=== PATIENT | male | born 1945 ===

== ENCOUNTER 2017-01-15 18:08 | Inpatient (IN) | payer MEDICARE, OTHER ==
[2017-01-15 18:08] VITALS: BMI 25.3
[2017-01-15 19:23] LABS: BASO # 0.1 K/uL (0.0-0.2); EOS # 0.1 K/uL (0.0-0.7); EOS % 0.9 % (0.0-4.0); HEMATOCRIT 40.5 % (35.0-51.0); LYMPH # 1.2 K/uL (1.0-4.3); LYMPH % 17.1 % (20.0-40.0); MEAN CORPUSCULAR HEMOGLOBIN 29.5 pg (27.0-31.0); MEAN CORPUSCULAR HGB CONC 33.1 g/dL (33.0-37.0); MONO # 0.3 K/uL (0.0-0.8); MONO % 4.5 % (0.0-10.0); RED CELL DISTRIBUTION WIDTH 13.4 % (11.5-14.5); WHITE BLOOD COUNT 7.3 K/uL (4.8-10.8)
--- NOTE | 2017-01-15 19:37 | C.PDOC ---
History Of Present Illness Patient presents to the ER after a syncopal episode. Patient states he walked to the bus stop and while waiting for the bus felt dizzy and fell. Patient does not recall the syncopal episode, it was witnessed by his . Patient reports having a small abrasion on his right cheek as a result of the syncopal episode. Patient was hospitalized in [place] a week ago after having a near syncopal episode. Patient is currently awake, alert and oriented. Denies any fever, chills, slurred speech, chest pain, shortness of breath or vision change. Time Seen by Provider: 01/15/17 19:35 Chief Complaint (Nursing): Syncope History Per: Patient History/Exam Limitations: no limitations Onset/Duration Of Symptoms: Hrs Current Symptoms Are (Timing): Still Present Number Of Syncopal Episodes: 1 Activity At Onset Of Symptoms: Standing Seizure Or Post-ictal Symptoms: None Fall Associated With With Symptoms: No Severity: Moderate Pain Scale Rating Of: 4 Recent travel outside of the [place]: No - Symptoms Of CVA Recent Aspirin Use: No Current Coumadin Use?: No Recent Head Trauma: No Past Medical History Reviewed: Historical Data, Nursing Documentation, Vital Signs Vital Signs: Last Vital Signs Temp 98.1 F 01/15/17 18:10 Pulse 70 01/15/17 20:22 Resp 16 01/15/17 20:22 BP 115/64 01/15/17 20:22 Pulse Ox 97 01/15/17 20:22 - Medical History PMH: HTN, Hypercholesterolemia Surgical History: No Surg Hx Family History: States: No Known Family Hx - Social History Hx Alcohol Use: No Hx Substance Use: No - Immunization History Hx Influenza Vaccination: Yes Review Of Systems Constitutional: Negative for: Fever, Chills Eyes: Negative for: Redness ENT: Negative for: Throat Pain Cardiovascular: Negative for: Chest Pain, Palpitations Respiratory: Negative for: Shortness of Breath Gastrointestinal: Negative for: Nausea, Vomiting Genitourinary: Negative for: Dysuria Musculoskeletal: Negative for: Back Pain Skin: Positive for: Other (Right cheek abrasion) Neurological: Positive for: Dizziness, Other (Syncopal episode, No vision change. ). Negative for: Change in Speech Psych: Negative for: Anxiety Physical Exam - Physical Exam Appears: Well, Non-toxic Skin: Warm, Dry Head: Abrasion (Right cheek), Other (Ecchymosis right cheek) Eye(s): bilateral: Normal Inspection, PERRL, EOMI Oral Mucosa: Moist Chest: Symmetrical, No Tenderness Cardiovascular: Rhythm Regular, No Murmur Respiratory: No Rales, No Rhonchi, No Wheezing Gastrointestinal/Abdominal: Soft, No Tenderness Back: No Normal Inspection Extremity: Normal ROM, No Tenderness Extremity: Bilateral: Atraumatic, Limited ROM To Joint, No Pedal Edema Neurological/Psych: Oriented x3, Normal Speech, Normal Cognition Gait: Steady ED Course And Treatment - Laboratory Results Result Diagrams: 01/15/17 19:20 01/15/17 19:20 ECG: Interpreted By Me, Viewed By Me O2 Sat by Pulse Oximetry: 99 (Room air) Pulse Ox Interpretation: Normal - Radiology CXR: Interpreted by Me, Viewed By Me CXR Interpretation: Yes: Other (mild chf). No: Infiltrates, Fracture, Pnemothorax Progress Note: CT of head, orbits, and facials w/o contrast, EKG, blood work, and CXR ordered. NIHSS Stroke Scale - Date/Time Evaluation Performed Date Performed: 01/15/17 When Was NIHSS Performed: Baseline - How Severe is the Stoke Level of Consciousness: 0=Alert LOC to Questions: 0=Both comments correct LOC to commands: 0=Obeys both correctly Best Gaze: 0=Normal Visual: 0=No visual loss Facial: 0=Normal Motor Arm - Left: 0=No drift Motor Arm - Right: 0=No drift Motor Leg - Left: 0=No drift Motor Leg - Right: 0=No drift Limb Ataxia: 0=Absent Sensory: 0=Normal Best Language: 0=No aphasia Dysarthia: 0=Normal articulation Extinction & Inattention (Neglect): 0=Normal, no object Score: 0 Severity Of Stroke: 0= No Stroke Disposition Discussed With : Brayan Forbes Comment: accepted the pt on her service and took over the care at 9:24 PM Doctor Will See Patient In The: Hospital Counseled Patient/Family Regarding: Studies Performed, Diagnosis - Disposition Disposition: HOSPITALIZED Disposition Time: 19:35 Condition: FAIR - POA Present On Arrival: Poor Glycemic Control - Clinical Impression Clinical Impression: Syncope - Scribe Statement The provider has reviewed the documentation as recorded by the Scribe Neal Viramontes All medical record entries made by the Scribe were at my direction and personally dictated by me. I have reviewed the chart and agree that the record accurately reflects my personal performance of the history, physical exam, medical decision making, and the department course for this patient. I have also personally directed, reviewed, and agree with the discharge instructions and disposition.
[2017-01-15 19:39] LABS: CHLORIDE 99 mmol/L (98-107); POTASSIUM 4.1 mmol/L (3.6-5.2); SODIUM 139 mmol/L (132-148)
[2017-01-15 19:41] LABS: AST/SGOT 18 U/L (17-59); BILIRUBIN,TOTAL 0.5 mg/dL (0.2-1.3); CARBON DIOXIDE 24 mmol/L (22-30); GFR AFRICAN-AMERICAN > 60
[2017-01-15 19:42] LABS: ALB/GLOB RATIO 1.5 (1.0-2.1); ALKALINE PHOSPHATASE 51 U/L (38-126); ALT/SGPT 13 U/L (21-72); BLOOD UREA NITROGEN 24 mg/dL (9-20); CALCIUM 9.1 mg/dl (8.6-10.4); GLUCOSE,RANDOM 173 mg/dL (75-110); TOTAL PROTEIN 6.8 g/dL (6.3-8.3)
--- NOTE | 2017-01-15 20:43 | CT ---
EXAM: CT Head Without Intravenous Contrast CLINICAL HISTORY: 71 years old, male; Injury or trauma; Fall; Initial encounter; Abrasion; Head, generalized; Additional info: Headache TECHNIQUE: Axial computed tomography images of the head/brain without intravenous contrast. This CT exam was performed using one or more of the following dose reduction techniques: automated exposure control, adjustment of the mA and/or kV according to patient size, and/or use of iterative reconstruction technique. EXAM DATE/TIME: Exam ordered 01/15/2017 7:36 PM COMPARISON: No relevant prior studies available. FINDINGS: Brain: There is a focal area of low density noted within the white matter of the right parietal lobe in the region of the centrum semiovale. There is a prominent extra-axial CSF containing space over the anterior aspect of the frontal lobes extending to the high convexities. The density of the fluid is slightly greater than that of the CSF within the ventricles. No edema or mass effect. Ventricles: Unremarkable. No ventriculomegaly. Bones/joints: Unremarkable. No acute fracture. Soft tissues: Unremarkable. Sinuses: Unremarkable as visualized. No acute sinusitis. Mastoid air cells: Unremarkable as visualized. No mastoid effusion. IMPRESSION: 1. Focal area of low density in the right centrum semiovale suggests an area of infarction. The age is indeterminate. MRI with diffusion weighted imaging would be helpful. 2. Dilated extra-axial CSF containing space overlying the frontal lobes bilaterally suggest chronic subdural hygromas. A slight increase in density of the fluid suggests the possibility of chronic subdural hematomas. MRI would be helpful in this distinction
--- NOTE | 2017-01-15 20:54 | CT ---
EXAM: CT Orbits Without Intravenous Contrast CLINICAL HISTORY: 71 years old, male; Injury or trauma; Fall; Initial encounter; Abrasion; Orbit/periorbital; Right TECHNIQUE: Axial computed tomography images of the orbits without intravenous contrast. This CT exam was performed using one or more of the following dose reduction techniques: automated exposure control, adjustment of the mA and/or kV according to patient size, and/or use of iterative reconstruction technique. Coronal and sagittal reformatted images were created and reviewed. EXAM DATE/TIME: Exam ordered 01/15/2017 7:41 PM COMPARISON: No relevant prior studies available. FINDINGS: Orbits: Unremarkable. Sinuses: Mucosal thickening is noted within the maxillary sinuses bilaterally. Mucosal thickening extends into the ethmoid air cells bilaterally No air-fluid levels. Bones/joints: Incidental note is made of degenerative changes within the facet joints at C2-3, C3-4 and C4-5. No acute fracture. Soft tissues: Unremarkable. IMPRESSION: 1. No evidence of fracture 2. Mucosal thickening noted within the maxillary and ethmoid sinuses bilaterally. 3. Degenerative changes noted within the cervical spine
[2017-01-15] MEDS: (Novolin R) Insulin Human Regular 100 units/ml vial SC SCH (22:27)
--- NOTE | 2017-01-15 23:16 | RAD ---
HISTORY: syncope COMPARISON: None available TECHNIQUE: Chest, one view. FINDINGS: Examination limited by habitus, hypoinflation, and patient obliquity. LUNGS: No focal consolidation. Nodular densities within the right mid and upper lung zones as well as left upper lobe suspected to reflect calcifications or granulomas. Please note that chest x-ray has limited sensitivity for the detection of pulmonary masses. PLEURA: No significant pleural effusion identified. No definite pneumothorax . CARDIOVASCULAR: The cardiomediastinal silhouette appears within normal limits of size. OSSEOUS STRUCTURES: No acute osseous abnormality identified. VISUALIZED UPPER ABDOMEN: Unremarkable. OTHER FINDINGS: None. IMPRESSION: No focal consolidation, significant pleural effusion, or definite pneumothorax identified. Evidence of prior granulomatous infection. Correlate clinically.
[2017-01-16] MEDS: (Novolin R) Insulin Human Regular 100 units/ml vial SC SCH ×4 (07:30→21:29)
[2017-01-16 08:12] LABS: BASO # 0.1 K/uL (0.0-0.2); BASO % 0.8 % (0.0-2.0); EOS # 0.1 K/uL (0.0-0.7); EOS % 1.1 % (0.0-4.0); LYMPH # 1.7 K/uL (1.0-4.3); LYMPH % 15.7 % (20.0-40.0); MEAN CELL VOLUME 89.3 fL (80.0-94.0); MEAN CORPUSCULAR HEMOGLOBIN 29.7 pg (27.0-31.0); MEAN CORPUSCULAR HGB CONC 33.3 g/dL (33.0-37.0); MEAN PLATELET VOLUME 8.4 fL (7.2-11.7); MONO # 0.7 K/uL (0.0-0.8); MONO % 6.5 % (0.0-10.0); RED CELL DISTRIBUTION WIDTH 13.5 % (11.5-14.5); WHITE BLOOD COUNT 10.7 K/uL (4.8-10.8)
[2017-01-16 08:20] LABS: CHLORIDE 100 mmol/L (98-107)
[2017-01-16 08:21] LABS: POTASSIUM 3.9 mmol/L (3.6-5.2); SODIUM 139 mmol/L (132-148)
[2017-01-16 08:23] LABS: ALB/GLOB RATIO 1.4 (1.0-2.1); AST/SGOT 21 U/L (17-59); BILIRUBIN,TOTAL 0.6 mg/dL (0.2-1.3); CARBON DIOXIDE 24 mmol/L (22-30); CHOLESTEROL 78 mg/dL (0-199); GFR AFRICAN-AMERICAN > 60; TOTAL PROTEIN 6.3 g/dL (6.3-8.3)
[2017-01-16 08:24] LABS: ALKALINE PHOSPHATASE 49 U/L (38-126); ALT/SGPT 15 U/L (21-72); BLOOD UREA NITROGEN 18 mg/dL (9-20); CALCIUM 8.6 mg/dl (8.6-10.4); GLUCOSE,RANDOM 96 mg/dL (75-110)
[2017-01-16 09:00] LABS: FREE T4 1.09 ng/dL (0.78-2.19)
[2017-01-16 09:14] LABS: THYROID STIMULATING HORMONE 0.53 mIU/L (0.46-4.68)
[2017-01-16 09:30] LABS: FOLATE 18.4 ng/mL
--- NOTE | 2017-01-16 09:41 | CP.PCM.PN ---
Subjective - Date & Time of Evaluation Date of Evaluation: 01/16/17 Time of Evaluation: 09:00 - Subjective Subjective: H&P dictated Objective - Vital Signs/Intake and Output Vital Signs (last 24 hours): Temp Pulse Resp BP Pulse Ox 98.1 F 77 20 114/69 97 01/16/17 08:29 01/16/17 08:29 01/16/17 08:29 01/16/17 08:29 01/16/17 08:29 Intake and Output: 01/16/17 01/16/17 06:59 18:59 Intake Total 240 Balance 240 - Medications Medications: Current Medications Aspirin (Ecotrin) 81 mg PO DAILY [facility] Clopidogrel Bisulfate (Plavix) 75 mg PO DAILY [facility] Insulin Human Regular (Novolin R) 0 unit SC ACHS [facility] PRN Reason: Protocol Last Admin: 01/15/17 22:27 Dose: Not Given Lisinopril (Zestril) 2.5 mg PO DAILY [facility] Metformin HCl (Glucophage Xr) 500 mg PO DAILY [facility] Rosuvastatin Calcium (Crestor) 5 mg PO HS [facility] Last Admin: 01/16/17 00:43 Dose: 5 mg Sitagliptin Phosphate (Januvia) 50 mg PO DAILY [facility] Tamsulosin HCl (Flomax) 0.4 mg PO HS [facility] Last Admin: 01/16/17 00:43 Dose: 0.4 mg - Labs Labs: 01/16/17 08:01 01/16/17 08:01 PT 11.3 SECONDS (9.7-12.2) 01/15/17 19:20 INR 1.0 01/15/17 19:20 APTT 26 SECONDS (21-34) 01/15/17 19:20
[2017-01-16] MEDS ORDERED: Aspirin-Dipyridamole 200-25 mg ER Cap PO SCH (10:00)
--- NOTE | 2017-01-16 10:41 | RAD ---
PROCEDURE: Right Wrist Radiographs. HISTORY: pain COMPARISON: None available. FINDINGS: BONES: No acute displaced fracture. JOINTS: No dislocation. SOFT TISSUES: Unremarkable. No evidence of radiopaque foreign body OTHER FINDINGS: None. IMPRESSION: No acute displaced fracture, dislocation, or significant joint effusion identified. If symptoms persist, or if there is continued clinical concern, x-ray follow-up in 7-10 days should be considered.
--- NOTE | 2017-01-16 10:42 | RAD ---
Right shoulder, one view Indication: Pain Comparison: None available Findings: Degenerative changes of the right shoulder including glenohumeral joint space narrowing. Mild acromioclavicular arthropathy. No acute displaced fracture. No obvious dislocation. Please note alignment cannot be adequately assessed without orthogonal views. Soft tissues appear unremarkable. No evidence of radiopaque foreign body. Impression: Degenerative changes.
[2017-01-16] MEDS ORDERED: Gadodiamide 287 MG/ML VIAL (15ML) IV ONE (12:10)
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
--- NOTE | 2017-01-16 13:17 | MRI ---
PROCEDURE: MRI BRAIN WITH AND WITHOUT CONTRAST HISTORY: syncope COMPARISON: Comparison made with prior CT scan of brain dated 01/07/2017. TECHNIQUE: Multiplanar, multisequence MR images of the brain were obtained with and without intravenous contrast enhancement. 15 cc of Omniscan contrast material injected. FINDINGS: HEMORRHAGE: No acute parenchymal, subarachnoid or extra-axial hemorrhage. No hemosiderin deposits identified on gradient echo weighted sequence. DWI: No evidence of an acute or early subacute infarction. BRAIN PARENCHYMA: Chronic ischemic changes seen within the deep and subcortical white matter both cerebral hemispheres with the largest of which is located in the right superior coronal radiata/centrum semiovale. Scattered chronic bilateral basal nuclei lacunar type infarcts also felt to be present. ENHANCEMENT: No enhancing parenchymal nor extra-axial masses or collections. No evidence of unusual meningeal enhancement. VENTRICLES: No evidence of obstructive hydrocephalus CRANIUM: Unremarkable. ORBITS: Grossly unremarkable. PARANASAL SINUSES/MASTOIDS: Clear VASCULAR SYSTEM: Visualized major vascular flow voids at skull base are patent. OTHER FINDINGS: None . IMPRESSION: No acute intracranial hemorrhage. Chronic white matter and basal nuclei ischemic changes. Mild generalized volume loss.
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
--- NOTE | 2017-01-17 06:42 | CP.PCM.CON ---
History of Present Illness - History of Present Illness History of Present Illness: Patient seen and evaluated Admitted with syncope Tilt table test Wednesday by Dr. Trotter ECHO: WNL Past Patient History - Infectious Disease Hx of Infectious Diseases: None - Past Medical History & Family History Past Medical History?: Yes - Past Social History Smoking Status: Former Smoker - CARDIAC Hx Cardiac Disorders: Yes Hx Hypercholesterolemia: Yes Hx Hypertension: Yes - PULMONARY Hx Respiratory Disorders: No - NEUROLOGICAL Hx Neurological Disorder: Yes HX Cerebrovascular Accident: Yes (permanent left facial droop 2005) Other/Comment: Left sided weakness, residual of stroke eleven years ago. - HEENT Hx HEENT Problems: No - RENAL Hx Chronic Kidney Disease: No - ENDOCRINE/METABOLIC Hx Endocrine Disorders: Yes Hx Diabetes Mellitus Type 2: Yes - HEMATOLOGICAL/ONCOLOGICAL Hx Blood Disorders: No - INTEGUMENTARY Hx Dermatological Problems: No - MUSCULOSKELETAL/RHEUMATOLOGICAL Hx Musculoskeletal Disorders: Yes Hx Falls: Yes - GASTROINTESTINAL Hx Gastrointestinal Disorders: Yes Other/Comment: colonoscopy - GENITOURINARY/GYNECOLOGICAL Hx Genitourinary Disorders: No - PSYCHIATRIC Hx Psychophysiologic Disorder: No Hx Substance Use: No - SURGICAL HISTORY Hx Surgeries: No - ANESTHESIA Hx Anesthesia: No Meds Allergies/Adverse Reactions: Allergies Allergy/AdvReac Type Severity Reaction Status Date / Time No Known Allergies Allergy Verified 01/15/17 18:16 - Medications Medications: Current Medications Aspirin (Ecotrin) 81 mg PO DAILY [facility] Last Admin: 01/16/17 10:38 Dose: 81 mg Clopidogrel Bisulfate (Plavix) 75 mg PO DAILY [facility] Last Admin: 01/16/17 10:38 Dose: 75 mg Cyanocobalamin (Vitamin B12 1000 Mcg/Ml Inj) 1,000 mcg IM DAILY [facility] Stop: 01/21/17 19:31 Last Admin: 01/16/17 19:40 Dose: 1,000 mcg Insulin Human Regular (Novolin R) 0 unit SC [facility] PRN Reason: Protocol Last Admin: 01/16/17 21:29 Dose: Not Given Lisinopril (Zestril) 2.5 mg PO DAILY [facility] Last Admin: 01/16/17 10:38 Dose: 2.5 mg Metformin HCl (Glucophage Xr) 500 mg PO DAILY [facility] Last Admin: 01/16/17 10:38 Dose: 500 mg Rosuvastatin Calcium (Crestor) 5 mg PO [facility] Last Admin: 01/16/17 21:30 Dose: 5 mg Sitagliptin Phosphate (Januvia) 50 mg PO DAILY [facility] Last Admin: 01/16/17 10:38 Dose: 50 mg Tamsulosin HCl (Flomax) 0.4 mg PO HS [facility] Last Admin: 01/16/17 21:30 Dose: 0.4 mg Results - Vital Signs Recent Vital Signs: Last Vital Signs Temp 98 F 01/16/17 23:20 Pulse 66 01/17/17 04:03 Resp 20 01/16/17 23:20 BP 109/52 L 01/16/17 23:20 Pulse Ox 95 01/16/17 23:20 - Labs Result Diagrams: 01/16/17 08:01 01/16/17 08:01 Labs: Laboratory Results - last 24 hr 01/16/17 01/16/17 01/16/17 08:01 08:01 08:01 WBC 10.7 RBC 4.26 L Hgb 12.7 Hct 38.0 MCV 89.3 MCH 29.7 MCHC 33.3 RDW 13.5 Plt Count 337 MPV 8.4 Neut % (Auto) 75.9 H Lymph % (Auto) 15.7 L [place] % (Auto) 6.5 Eos % (Auto) 1.1 Baso % (Auto) 0.8 Neut # 8.1 H Lymph # 1.7 [place] # 0.7 Eos # 0.1 Baso # 0.1 ESR 11 Sodium 139 Potassium 3.9 Chloride 100 Carbon Dioxide 24 Anion Gap 18 BUN 18 Creatinine 0.8 Est GFR ( Amer) > 60 Est GFR (Non-Af Amer) > 60 POC Glucose (mg/dL) Random Glucose 96 Calcium 8.6 Total Bilirubin 0.6 AST 21 ALT 15 L Alkaline Phosphatase 49 Total Protein 6.3 Albumin 3.7 Globulin 2.7 Albumin/Globulin Ratio 1.4 Triglycerides 94 Cholesterol 78 LDL Cholesterol Direct < 30 HDL Cholesterol 44 Vitamin B12 < 159 L Folate 18.4 Free T4 1.09 TSH 3rd Generation 0.53 01/16/17 01/16/17 01/16/17 12:53 17:31 20:46 WBC RBC Hgb Hct MCV MCH MCHC RDW Plt Count MPV Neut % (Auto) Lymph % (Auto) [place] % (Auto) Eos % (Auto) Baso % (Auto) Neut # Lymph # [place] # Eos # Baso # ESR Sodium Potassium Chloride Carbon Dioxide Anion Gap BUN Creatinine Est GFR ( Amer) Est GFR (Non-Af Amer) POC Glucose (mg/dL) 102 76 111 H Random Glucose Calcium Total Bilirubin AST ALT Alkaline Phosphatase Total Protein Albumin Globulin Albumin/Globulin Ratio Triglycerides Cholesterol LDL Cholesterol Direct HDL Cholesterol Vitamin B12 Folate Free T4 TSH 3rd Generation 01/16/17 01/17/17 21:29 06:20 WBC RBC Hgb Hct MCV MCH MCHC RDW Plt Count MPV Neut % (Auto) Lymph % (Auto) [place] % (Auto) Eos % (Auto) Baso % (Auto) Neut # Lymph # [place] # Eos # Baso # ESR Sodium Potassium Chloride Carbon Dioxide Anion Gap BUN Creatinine Est GFR ( Amer) Est GFR (Non-Af Amer) POC Glucose (mg/dL) 123 H 101 Random Glucose Calcium Total Bilirubin AST ALT Alkaline Phosphatase Total Protein Albumin Globulin Albumin/Globulin Ratio Triglycerides Cholesterol LDL Cholesterol Direct HDL Cholesterol Vitamin B12 Folate Free T4 TSH 3rd Generation
[2017-01-17] MEDS: (Novolin R) Insulin Human Regular 100 units/ml vial SC SCH ×4 (07:46→22:22)
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
--- NOTE | 2017-01-17 11:32 | CP.PCM.PN ---
Subjective - Date & Time of Evaluation Date of Evaluation: 01/17/17 Time of Evaluation: 11:20 - Subjective Subjective: Progress note dictated #[id number] Objective - Vital Signs/Intake and Output Vital Signs (last 24 hours): Temp Pulse Resp BP Pulse Ox 98.1 F 62 20 102/64 96 01/17/17 09:11 01/17/17 09:11 01/17/17 09:11 01/17/17 09:11 01/17/17 09:11 Intake and Output: 01/17/17 01/17/17 06:59 18:59 Intake Total 610 Output Total 350 Balance 260 - Medications Medications: Current Medications Aspirin (Ecotrin) 81 mg PO DAILY [facility] Last Admin: 01/17/17 09:40 Dose: 81 mg Clopidogrel Bisulfate (Plavix) 75 mg PO DAILY [facility] Last Admin: 01/17/17 09:39 Dose: 75 mg Cyanocobalamin (Vitamin B12 1000 Mcg/Ml Inj) 1,000 mcg IM DAILY [facility] Stop: 01/21/17 19:31 Last Admin: 01/17/17 09:40 Dose: 1,000 mcg Insulin Human Regular (Novolin R) 0 unit SC [facility] PRN Reason: Protocol Last Admin: 01/17/17 07:46 Dose: Not Given Lisinopril (Zestril) 2.5 mg PO DAILY [facility] Last Admin: 01/17/17 09:40 Dose: 2.5 mg Metformin HCl (Glucophage Xr) 500 mg PO DAILY [facility] Last Admin: 01/17/17 09:39 Dose: 500 mg Rosuvastatin Calcium (Crestor) 5 mg PO HS [facility] Last Admin: 01/16/17 21:30 Dose: 5 mg Sitagliptin Phosphate (Januvia) 50 mg PO DAILY [facility] Last Admin: 01/17/17 09:39 Dose: 50 mg Tamsulosin HCl (Flomax) 0.4 mg PO HS [facility] Last Admin: 01/16/17 21:30 Dose: 0.4 mg - Labs Labs: 01/16/17 08:01 01/16/17 08:01 PT 11.3 SECONDS (9.7-12.2) 01/15/17 19:20 INR 1.0 01/15/17 19:20 APTT 26 SECONDS (21-34) 01/15/17 19:20
--- NOTE | 2017-01-17 13:42 | PN ---
DATE: 01/17/2017 The patient is seen and examined at bedside. The patient is feeling much better. Denies any further episodes of syncope or dizziness. Right shoulder and wrist pain is improving. Denies any other complaints. All other systems reviewed and were found to be negative. PHYSICAL EXAMINATION: GENERAL: Elderly male, lying in bed, in no acute distress. VITAL SIGNS: Blood pressure 102/64, pulse 62, respirations 20, temperature 98.1 degrees Fahrenheit, O2 sat is 96% on 2 liters nasal cannula. HEENT: Pupils equal, round, reacting to light and accommodation. No icterus, no pallor. NECK: Supple. No JVD. LUNGS: Bilateral vesicular breath sounds. No wheezing, no rhonchi. CARDIOVASCULAR: S1, S2 present, regular. ABDOMEN: Soft, nontender. Bowel sounds present. No guarding, no rigidity, no rebound tenderness noted. CENTRAL NERVOUS SYSTEM: Alert, awake, oriented x 3. No focal deficits noted. EXTREMITIES: No edema. Palpable peripheral pulses. MEDICATIONS: Include aspirin 81 mg daily, Plavix 75 mg daily, vitamin B12 1000 mcg IM, Zestril 2.5 mg p.o. daily, metformin 500 mg p.o. daily, Crestor 5 mg p.o. at bedtime, Januvia 50 mg p.o. daily, Flomax 0.4 mg p.o. at bedtime. His Accu-Cheks are 102, 76, 123 plus 101. B12 is 159. Folate 18.4. TSH 0.53. Carotid Dopplers results pending. Echo results pending. ASSESSMENT AND PLAN: Elderly male with history of hypertension, hyperlipidemia , history of cerebrovascular accident, diabetes mellitus with multiple syncopal episodes in the past 4-5 months, rule out seizure versus cardiac ischemia. The patient is undergoing workup. Carotid Doppler pending. Echo results pending. The patient is for EEG and cardiology and neurology consults appreciated. For possible tilt table test Wednesday. The patient is started on B12 supplementation for B12 deficiency. Will continue with his current medication. His Aggrenox was changed to aspirin and Plavix by neurology. Will follow up with the carotid ultrasound results. Will request physical therapy. Brayan Forbes MD cc: [id number] TT: 01/17/2017 13:42:07 Confirmation # [id number] Dictation # [id number] en MTDD
[2017-01-18] MEDS: (Novolin R) Insulin Human Regular 100 units/ml vial SC SCH ×4 (07:25→22:02)
--- NOTE | 2017-01-18 10:57 | CP.PCM.PN ---
Subjective - Date & Time of Evaluation Date of Evaluation: 01/18/17 Time of Evaluation: 10:40 - Subjective Subjective: Progress note dictated #[id number] Objective - Vital Signs/Intake and Output Vital Signs (last 24 hours): Temp Pulse Resp BP Pulse Ox 97.9 F 64 18 116/62 97 01/18/17 07:20 01/18/17 08:28 01/18/17 07:20 01/18/17 07:20 01/18/17 07:20 - Medications Medications: Current Medications Aspirin (Ecotrin) 81 mg PO DAILY [facility] Last Admin: 01/18/17 10:21 Dose: 81 mg Clopidogrel Bisulfate (Plavix) 75 mg PO DAILY [facility] Last Admin: 01/18/17 10:21 Dose: 75 mg Cyanocobalamin (Vitamin B12 1000 Mcg/Ml Inj) 1,000 mcg IM DAILY [facility] Stop: 01/21/17 19:31 Last Admin: 01/18/17 10:21 Dose: 1,000 mcg Insulin Human Regular (Novolin R) 0 unit SC [facility] PRN Reason: Protocol Last Admin: 01/18/17 07:25 Dose: Not Given Lisinopril (Zestril) 2.5 mg PO DAILY [facility] Last Admin: 01/18/17 10:21 Dose: 2.5 mg Metformin HCl (Glucophage Xr) 500 mg PO DAILY [facility] Last Admin: 01/18/17 10:21 Dose: 500 mg Rosuvastatin Calcium (Crestor) 5 mg PO HS [facility] Last Admin: 01/17/17 22:24 Dose: 5 mg Sitagliptin Phosphate (Januvia) 50 mg PO DAILY [facility] Last Admin: 01/18/17 10:21 Dose: 50 mg Tamsulosin HCl (Flomax) 0.4 mg PO HS [facility] Last Admin: 01/17/17 22:24 Dose: 0.4 mg - Labs Labs: 01/16/17 08:01 01/16/17 08:01 PT 11.3 SECONDS (9.7-12.2) 01/15/17 19:20 INR 1.0 01/15/17 19:20 APTT 26 SECONDS (21-34) 01/15/17 19:20
[2017-01-18 16:07] VITALS: RESP 20
--- NOTE | 2017-01-18 16:34 | CP.PCM.PN ---
<Spencer Harper - Last Filed: 01/18/17 16:37> Subjective - Date & Time of Evaluation Date of Evaluation: 01/18/17 Time of Evaluation: 16:31 - Subjective Subjective: Cardiology Progress Note Dr. Trotter Patient seen richard irwin at the bedside. No acute distress. No acute events overnight. Nursing staff reports no issues. Patient had tilt table examination this afternoon followed by a loop recorder placement. The patient tolerated the procedures well. The patient had no cardiopulmonary complaints prior to the examinations. 12 point review of systems was completed and returned negative for all acute complaints. Objective - Vital Signs/Intake and Output Vital Signs (last 24 hours): Temp Pulse Resp BP Pulse Ox 98.0 F 63 20 127/74 94 L 01/18/17 15:06 01/18/17 15:06 01/18/17 15:06 01/18/17 15:06 01/18/17 15:06 - Medications Medications: Current Medications Aspirin (Ecotrin) 81 mg PO DAILY [facility] Last Admin: 01/18/17 10:21 Dose: 81 mg Clopidogrel Bisulfate (Plavix) 75 mg PO DAILY [facility] Last Admin: 01/18/17 10:21 Dose: 75 mg Cyanocobalamin (Vitamin B12 1000 Mcg/Ml Inj) 1,000 mcg IM DAILY [facility] Stop: 01/21/17 19:31 Last Admin: 01/18/17 10:21 Dose: 1,000 mcg Insulin Human Regular (Novolin R) 0 unit SC [facility] PRN Reason: Protocol Last Admin: 01/18/17 12:45 Dose: Not Given Lisinopril (Zestril) 2.5 mg PO DAILY [facility] Last Admin: 01/18/17 10:21 Dose: 2.5 mg Metformin HCl (Glucophage Xr) 500 mg PO DAILY [facility] Last Admin: 01/18/17 10:21 Dose: 500 mg Rosuvastatin Calcium (Crestor) 5 mg PO [facility] Last Admin: 01/17/17 22:24 Dose: 5 mg Sitagliptin Phosphate (Januvia) 50 mg PO DAILY [facility] Last Admin: 01/18/17 10:21 Dose: 50 mg Tamsulosin HCl (Flomax) 0.4 mg PO [facility] Last Admin: 01/17/17 22:24 Dose: 0.4 mg - Labs Labs: 01/16/17 08:01 01/16/17 08:01 PT 11.3 SECONDS (9.7-12.2) 01/15/17 19:20 INR 1.0 01/15/17 19:20 APTT 26 SECONDS (21-34) 01/15/17 19:20 - Additional Findings Additional findings: - Constitutional Appears: Well, No Acute Distress - Head Exam Head Exam: ATRAUMATIC, NORMAL INSPECTION, NORMOCEPHALIC - Eye Exam Eye Exam: EOMI, Normal appearance Pupil Exam: NORMAL ACCOMODATION - ENT Exam ENT Exam: Mucous Membranes Moist, Normal Exam - Neck Exam Neck exam: Positive for: Full Rom, Normal Inspection. Negative for: Tenderness - Respiratory Exam Respiratory Exam: Clear to Auscultation Bilateral, NORMAL BREATHING PATTERN. absent: Rales, Rhonchi, Wheezes, Respiratory Distress, Stridor - Cardiovascular Exam Cardiovascular Exam: REGULAR RHYTHM, RRR, +S1, +S2. absent: Diastolic murmur, Systolic Murmur - GI/Abdominal Exam GI & Abdominal Exam: Normal Bowel Sounds, Soft. absent: Distended, Firm, Guarding, Tenderness - Extremities Exam Extremities exam: Positive for: normal inspection. Negative for: calf tenderness, normal capillary refill, pedal pulses present Additional comments: 4/5 weakness Right upper and lower extremities - Neurological Exam Neurological exam: Alert, CN II-XII Intact, Oriented x3 - Skin Skin Exam: Dry, Intact, Normal Color, Warm Assessment and Plan (1) Syncope Assessment & Plan: Tilt Table Examination- negative Loop recorder placed in microbiological laboratory technician holding area continue current management per medical team continue telemetric monitoring 01/18/17 EKG- Normal sinus rhythm, RBBB, prolonged QRS/QTc 12/31/16 EKG- Official read- shows normal sinus rhythm, RBBB, Minimal voltage criteria for LVH (might be normal variant). 01/18/17 Echo: preliminary EF 59%- official read pending Holter monitor: (02/25/15) 24 hour holter reading revealed sinus rhythm. HR fluctuated between 45 and 113. Mean HR 72 BPM. No malignant arrhythmias or pauses noted. case discussed with Dr. Sergo Harper PGY1 Status: Acute (2) Status post placement of implantable loop recorder Assessment & Plan: Implantable Loop Recorder Insertion Consent: Detailed explanation of the procedure, treatment options, risks including but not limited to infection and bleeding, and benefits were explained to the patient. A written informed consent was obtained. Technique: A time out was preformed identifying the correct procedure, the correct location with the nursing staff. The left breast was prepped with 2% chlorhexidine and draped with a full length sterile sheet in the usual fashion. 1% lidocaine was administered subcutaneously for local anesthesia. All participating personnel donned sterile gown and gloves in addition to standard sterile precautions. Pre-packaged skin incision blade was used to make an incision in the skin. A subcutaneous tunnel was created and the loop recorder was put into position. Placement was confirmed by the attending at the bedside. The incision was closed with 2 steri-strips. A 1x1 gauze was folded into quarters and adhered to the incision with a tegaderm dressing. The patient tolerated the procedure well and there were no complications. Status: Acute <Omar Trotter - Last Filed: 01/28/17 09:53> Objective - Vital Signs/Intake and Output Vital Signs (last 24 hours): Temp Pulse Resp BP Pulse Ox 98.4 F 61 20 147/66 96 01/19/17 08:26 01/19/17 10:56 01/19/17 08:26 01/19/17 08:26 01/19/17 08:26 - Labs Labs: 01/19/17 07:54 01/19/17 07:54 PT 11.3 SECONDS (9.7-12.2) 01/15/17 19:20 INR 1.0 01/15/17 19:20 APTT 26 SECONDS (21-34) 01/15/17 19:20 Attending/Attestation - Attestation I have personally seen and examined this patient.: Yes I have fully participated in the care of the patient.: Yes I have reviewed all pertinent clinical information, including history, physical exam and plan: Yes Notes (Text): 01/28/17 09:52 possible outpt stress
--- NOTE | 2017-01-18 20:42 | PN ---
DATE: 01/18/2017 TIME OF EVALUATION: 7:10 a.m. NEUROLOGICAL PROBLEM: Recurrent syncope, history of old stroke. PHYSICAL EXAMINATION: VITAL SIGNS: Blood pressure 116/62, mean arterial pressure of 80, respiratory rate 16, temperature afebrile. NECK: Supple. No carotid bruit. HEART: Sounds are normal. NEUROLOGIC: The rest of the neurologic examination is unchanged to compare with the previous examination. Since he is admitted, no new syncopal attack is not noted. DIAGNOSTIC DATA: The patient had extensive workup for his syncopal attack. The recommended electroencephalogram is still pending. MRI of the brain does not show any acute ischemic changes noted. RECOMMENDATIONS: The patient can continue antiplatelets as recommended above. Following discharge from here, patient should have an extended hour ambulatory video electroencephalogram to further localize any electrophysiologic seizures which are mostly present during the light sleep. This procedure have been discussed with the patient. The patient will be followed closely with you. Henok Potter MD cc: [id number] TT: 01/18/2017 20:42:05 Confirmation # [id number] Dictation # [id number] NING
--- NOTE | 2017-01-18 22:54 | PN ---
DATE: 01/18/2017 HISTORY OF PRESENT ILLNESS: The patient is seen and examined at bedside. He is feeling much better. Denies any headache, dizziness. Denies any other complaints. PHYSICAL EXAMINATION: GENERAL: Elderly male lying in bed in no acute distress. VITAL SIGNS: Blood pressure 127/74, pulse 63, respirations 20, temperature 98 degrees Fahrenheit, O2 sats 94% on room air. HEENT: Pupils equal, round, reacting to light and accommodation. Extraocular muscles intact. No ic terus, no pallor. No oral thrush. No pharyngeal congestion. NECK: Supple. No JVD. LUNGS: Bilateral vesicular breath sounds. No wheezing, no rhonchi. CARDIOVASCULAR: S1, S2 present, regular. ABDOMEN: Soft, nontender. Bowel sounds present. No guarding, no rigidity, no rebound tenderness no francisco. CENTRAL NERVOUS SYSTEM: Alert, awake, oriented x 3. No focal deficits noted. EXTREMITIES: No edema. Palpable peripheral pulses. MEDICATIONS: Include aspirin 81 mg daily, Plavix 75 mg daily, B12 1000 mcg IM daily, Zestril 2.5 mg daily, Glucophage 500 mg daily, Crestor 5 mg p.o. at bedtime, Januvia 50 mg daily, Flomax 0.4 mg p.o . at bedtime. Accu-Cheks are 94, 73, 108, 108, and 100. STUDIES: The patient underwent still table testing and underwent loop recorder placement. EEG still pending. ASSESSMENT AND PLAN: Elderly male with history of hypertension, hyperlipidemia, history of cerebrova scular accident, benign prostatic hypertrophy, diabetes mellitus, admitted for recurrent syncopal epi sodes. The patient underwent cardiac workup, which is negative. EEG results pending. Underwent loo p recorder placement today. If patient is feeling better and cleared by neurology and cardiology, we will plan discharging the patient home. Continue with current medications as ordered. Discussed wi th patient's son. Brayan Forbes MD cc: [id number] TT: 01/18/2017 22:54:28 Confirmation # [id number] Dictation # [id number] ln
--- NOTE | 2017-01-19 00:10 | CP.PCM.PN ---
Subjective - Date & Time of Evaluation Date of Evaluation: 01/18/17 Time of Evaluation: 19:20 - Subjective Subjective: Tilt table test normal S/P Loop insertion Recommend out patient follow up, if neuro w/u normal Objective - Vital Signs/Intake and Output Vital Signs (last 24 hours): Temp Pulse Resp BP Pulse Ox 98.0 F 63 20 127/74 94 L 01/18/17 15:06 01/18/17 16:00 01/18/17 15:06 01/18/17 15:06 01/18/17 15:06 Intake and Output: 01/18/17 01/19/17 18:59 06:59 Intake Total 320 Output Total 350 Balance -30 - Medications Medications: Current Medications Aspirin (Ecotrin) 81 mg PO DAILY [facility] Last Admin: 01/18/17 10:21 Dose: 81 mg Clopidogrel Bisulfate (Plavix) 75 mg PO DAILY [facility] Last Admin: 01/18/17 10:21 Dose: 75 mg Cyanocobalamin (Vitamin B12 1000 Mcg/Ml Inj) 1,000 mcg IM DAILY [facility] Stop: 01/21/17 19:31 Last Admin: 01/18/17 10:21 Dose: 1,000 mcg Insulin Human Regular (Novolin R) 0 unit SC [facility] PRN Reason: Protocol Last Admin: 01/18/17 22:02 Dose: Not Given Lisinopril (Zestril) 2.5 mg PO DAILY [facility] Last Admin: 01/18/17 10:21 Dose: 2.5 mg Metformin HCl (Glucophage Xr) 500 mg PO DAILY [facility] Last Admin: 01/18/17 10:21 Dose: 500 mg Rosuvastatin Calcium (Crestor) 5 mg PO [facility] Last Admin: 01/18/17 21:44 Dose: 5 mg Sitagliptin Phosphate (Januvia) 50 mg PO DAILY [facility] Last Admin: 01/18/17 10:21 Dose: 50 mg Tamsulosin HCl (Flomax) 0.4 mg PO [facility] Last Admin: 01/18/17 21:44 Dose: 0.4 mg - Labs Labs: 01/16/17 08:01 01/16/17 08:01 PT 11.3 SECONDS (9.7-12.2) 01/15/17 19:20 INR 1.0 01/15/17 19:20 APTT 26 SECONDS (21-34) 01/15/17 19:20
[2017-01-19] MEDS: (Novolin R) Insulin Human Regular 100 units/ml vial SC SCH (07:20)
--- NOTE | 2017-01-19 08:19 | EEG ---
DATE: 01/18/2017 This is a 16-channel electroencephalogram of awake and drowsy adult. During the study, photic stimul ation was performed, hyperventilation was not performed. The resting electroencephalogram consists of low amplitude fast beta activity seen diffusely in the b ilateral cortical leads. This activity is continuously noted without any changes. The photic stimul ation did not evoke driving response noted at 2-20 Hz. The EKG shows some elevation of ST segment throughout the lead. CONCLUSION: This is an abnormal electroencephalogram because of persistent fast beta activities cons istent with probable drug effect of his medication. However, during the study, neither electroenceph alographic paroxysmal activities nor focal slowing noted. If clinical suspicion is high, strongly veronica ggest that he should have an extended hour ambulatory video electroencephalogram, which can be done a s outpatient. EEG shows abnormal ST segment elevation, which should be followed by finish carpenter. Henok Potter MD cc: [id number] TT: 01/19/2017 08:18:38 Confirmation # [id number] Dictation # [id number] en
[2017-01-19 08:27] VITALS: BP 147/66; TEMP 98.4; O2SAT 96
[2017-01-19 08:36] LABS: BASO # 0.1 K/uL (0.0-0.2); BASO % 1.3 % (0.0-2.0); EOS # 0.2 K/uL (0.0-0.7); HEMATOCRIT 39.1 % (35.0-51.0); LYMPH # 1.7 K/uL (1.0-4.3); LYMPH % 25.9 % (20.0-40.0); MEAN CELL VOLUME 88.9 fL (80.0-94.0); MEAN CORPUSCULAR HEMOGLOBIN 29.9 pg (27.0-31.0); MEAN CORPUSCULAR HGB CONC 33.7 g/dL (33.0-37.0); MEAN PLATELET VOLUME 8.5 fL (7.2-11.7); MONO # 0.6 K/uL (0.0-0.8); MONO % 8.3 % (0.0-10.0); RED CELL DISTRIBUTION WIDTH 13.5 % (11.5-14.5); WHITE BLOOD COUNT 6.7 K/uL (4.8-10.8)
[2017-01-19 08:37] LABS: CHLORIDE 100 mmol/L (98-107); POTASSIUM 3.9 mmol/L (3.6-5.2); SODIUM 137 mmol/L (132-148)
[2017-01-19 08:39] LABS: AST/SGOT 20 U/L (17-59); BILIRUBIN,TOTAL 0.5 mg/dL (0.2-1.3); CARBON DIOXIDE 25 mmol/L (22-30); GFR AFRICAN-AMERICAN > 60
[2017-01-19 08:40] LABS: ALB/GLOB RATIO 1.3 (1.0-2.1); ALKALINE PHOSPHATASE 51 U/L (38-126); ALT/SGPT 20 U/L (21-72); BLOOD UREA NITROGEN 20 mg/dL (9-20); CALCIUM 8.7 mg/dl (8.6-10.4); GLUCOSE,RANDOM 103 mg/dL (75-110); TOTAL PROTEIN 6.5 g/dL (6.3-8.3)
--- NOTE | 2017-01-19 10:19 | VASCLAB ---
PROCEDURE: HISTORY: syncope COMPARISON: None available. TECHNIQUE: Grayscale and duplex Doppler evaluation of the cervical carotid and vertebral arteries were performed. The common carotid, carotid bifurcations and cervical Internal Carotid Artery (ICA) and proximal External Carotid Artery (ECA) were evaluated. The vertebral arteries were evaluated for gross patency and flow direction. Report prepared by LUCIUS Brantley, RVT FINDINGS: RIGHT CAROTID ARTERIES: 1. Common Carotid Artery: No significant focal plaque formation of the right common carotid artery. Maximum Peak Systolic velocity: 88 cm/sec: End-diastolic velocity 13 cm/sec. 2. Carotid Bifurcation: plaque formation. Maximum Peak Systolic velocity: 74 cm/sec: End-diastolic velocity 14 cm/sec. 3. Internal Carotid Artery: Plaque description: 3.1. Proximal Segment: Peak systolic velocity 96 cm/sec: End-diastolic velocity 23 cm/sec - % stenosis 3.2. Middle Segment: Peak systolic velocity 64 cm/sec: End-diastolic velocity 17 cm/sec - % stenosis 3.3. Distal Segment: Peak systolic velocity 70 cm/sec: End-diastolic velocity 13 cm/sec - % stenosis 4. External Carotid Artery: No significant focal plaque formation. Peak systolic velocity 87 cm/sec 5. ICA/CCA Ratio: 1.1 LEFT CAROTID ARTERIES: 1. Common Carotid Artery: No significant focal plaque formation of the left common carotid artery. Maximum Peak Systolic velocity: 110 cm/sec: End-diastolic velocity 20 cm/sec. 2. Carotid Bifurcation: plaque formation. Maximum Peak Systolic velocity: 90 cm/sec: End-diastolic velocity 14 cm/sec. 3. Internal Carotid Artery: Plaque description: Heterogeneous 3.1. Proximal Segment: Peak systolic velocity 78 cm/sec: End-diastolic velocity 22 cm/sec - % stenosis 3.2. Middle Segment: Peak systolic velocity 79 cm/sec: End-diastolic velocity 25 cm/sec - % stenosis 3.3. Distal Segment: Peak systolic velocity 81 cm/sec: End-diastolic velocity 29 cm/sec - % stenosis 4. External Carotid Artery: No significant focal plaque formation. Peak systolic velocity 40 cm/sec 5. ICA/CCA Ratio: 1.1 VERTEBRAL ARTERIES: 1. Right Vertebral Artery: The right vertebral artery flow direction is antegrade. 2. Left Vertebral Artery: The left vertebral artery flow direction is antegrade. OTHER FINDINGS: 1. Right Brachial Blood pressure: iv mmHg. 2. Left Brachial Blood pressure: 110 mmHg. IMPRESSION: RIGHT: Duplex scan does not suggest hemodynamically significant stenosis of the right extracranial carotid arteries. LEFT: Duplex scan does not suggest hemodynamically significant stenosis of the left extracranial carotid arteries.
--- NOTE | 2017-01-19 10:31 | CP.PCM.PN ---
Subjective - Date & Time of Evaluation Date of Evaluation: 01/19/17 Time of Evaluation: 10:20 - Subjective Subjective: Discharge summary dictated #[id number] Objective - Vital Signs/Intake and Output Vital Signs (last 24 hours): Temp Pulse Resp BP Pulse Ox 98.4 F 68 20 147/66 96 01/19/17 08:26 01/19/17 08:26 01/19/17 08:26 01/19/17 08:26 01/19/17 08:26 Intake and Output: 01/19/17 01/19/17 06:59 18:59 Intake Total 470 Output Total 350 Balance 120 - Medications Medications: Current Medications Aspirin (Ecotrin) 81 mg PO DAILY [facility] Last Admin: 01/19/17 08:59 Dose: 81 mg Clopidogrel Bisulfate (Plavix) 75 mg PO DAILY [facility] Last Admin: 01/19/17 08:59 Dose: 75 mg Cyanocobalamin (Vitamin B12 1000 Mcg/Ml Inj) 1,000 mcg IM DAILY [facility] Stop: 01/21/17 19:31 Last Admin: 01/19/17 08:58 Dose: 1,000 mcg Insulin Human Regular (Novolin R) 0 unit SC [facility] PRN Reason: Protocol Last Admin: 01/19/17 07:20 Dose: Not Given Lisinopril (Zestril) 2.5 mg PO DAILY [facility] Last Admin: 01/19/17 09:00 Dose: 2.5 mg Metformin HCl (Glucophage Xr) 500 mg PO DAILY [facility] Last Admin: 01/19/17 09:01 Dose: 500 mg Rosuvastatin Calcium (Crestor) 5 mg PO HS [facility] Last Admin: 01/18/17 21:44 Dose: 5 mg Sitagliptin Phosphate (Januvia) 50 mg PO DAILY [facility] Last Admin: 01/19/17 08:59 Dose: 50 mg Tamsulosin HCl (Flomax) 0.4 mg PO HS [facility] Last Admin: 01/18/17 21:44 Dose: 0.4 mg - Labs Labs: 01/19/17 07:54 01/19/17 07:54 PT 11.3 SECONDS (9.7-12.2) 01/15/17 19:20 INR 1.0 01/15/17 19:20 APTT 26 SECONDS (21-34) 01/15/17 19:20
[2017-01-19 10:57] VITALS: PULSE 61
--- NOTE | 2017-01-19 15:24 | CP.PCM.PN ---
<Spencer Harper - Last Filed: 01/19/17 18:32> Subjective - Date & Time of Evaluation Date of Evaluation: 01/19/17 Time of Evaluation: 15:18 - Subjective Subjective: Cardiology Progress Note Dr. Trotter Patient seen richard irwin at the bedside. No acute distress. No acute events overnight. Nursing staff reports no issues. Patient is post procedural day #1 s/p insertion of a cardiac loop recorder. The patient tolerated the procedure well. The patient has no cardiopulmonary complaints today. 12 point review of systems was completed and returned negative for all acute complaints. Objective - Vital Signs/Intake and Output Vital Signs (last 24 hours): Temp Pulse Resp BP Pulse Ox 98.4 F 61 20 147/66 96 01/19/17 08:26 01/19/17 10:56 01/19/17 08:26 01/19/17 08:26 01/19/17 08:26 Intake and Output: 01/19/17 01/19/17 06:59 18:59 Intake Total 470 Output Total 350 Balance 120 - Medications Medications: Current Medications Aspirin (Ecotrin) 81 mg PO DAILY [facility] Last Admin: 01/19/17 08:59 Dose: 81 mg Clopidogrel Bisulfate (Plavix) 75 mg PO DAILY [facility] Last Admin: 01/19/17 08:59 Dose: 75 mg Cyanocobalamin (Vitamin B12 1000 Mcg/Ml Inj) 1,000 mcg IM DAILY [facility] Stop: 01/21/17 19:31 Last Admin: 01/19/17 08:58 Dose: 1,000 mcg Insulin Human Regular (Novolin R) 0 unit SC [facility] PRN Reason: Protocol Last Admin: 01/19/17 07:20 Dose: Not Given Lisinopril (Zestril) 2.5 mg PO DAILY [facility] Last Admin: 01/19/17 09:00 Dose: 2.5 mg Metformin HCl (Glucophage Xr) 500 mg PO DAILY [facility] Last Admin: 01/19/17 09:01 Dose: 500 mg Rosuvastatin Calcium (Crestor) 5 mg PO [facility] Last Admin: 01/18/17 21:44 Dose: 5 mg Sitagliptin Phosphate (Januvia) 50 mg PO DAILY [facility] Last Admin: 01/19/17 08:59 Dose: 50 mg Tamsulosin HCl (Flomax) 0.4 mg PO [facility] Last Admin: 01/18/17 21:44 Dose: 0.4 mg - Labs Labs: 01/19/17 07:54 01/19/17 07:54 PT 11.3 SECONDS (9.7-12.2) 01/15/17 19:20 INR 1.0 01/15/17 19:20 APTT 26 SECONDS (21-34) 01/15/17 19:20 - Additional Findings Additional findings: - Constitutional Appears: Well, No Acute Distress - Head Exam Head Exam: ATRAUMATIC, NORMAL INSPECTION, NORMOCEPHALIC - Eye Exam Eye Exam: EOMI, Normal appearance Pupil Exam: NORMAL ACCOMODATION - ENT Exam ENT Exam: Mucous Membranes Moist, Normal Exam - Neck Exam Neck exam: Positive for: Full Rom, Normal Inspection. Negative for: Tenderness - Respiratory Exam Respiratory Exam: Clear to Auscultation Bilateral, NORMAL BREATHING PATTERN. absent: Rales, Rhonchi, Wheezes, Respiratory Distress, Stridor - Cardiovascular Exam Cardiovascular Exam: REGULAR RHYTHM, RRR, +S1, +S2. absent: Diastolic murmur, Systolic Murmur - GI/Abdominal Exam GI & Abdominal Exam: Normal Bowel Sounds, Soft. absent: Distended, Firm, Guarding, Tenderness - Extremities Exam Extremities exam: Positive for: normal inspection. Negative for: calf tenderness, normal capillary refill, pedal pulses present Additional comments: 4/5 weakness Right upper and lower extremities - Neurological Exam Neurological exam: Alert, CN II-XII Intact, Oriented x3 - Skin Skin Exam: Dry, Intact, Normal Color, Warm Additional comments: dressing left chest C/D/I minimal tenderness to palpation no erythema no edema no exudate Assessment and Plan (1) Syncope Assessment & Plan: Tilt Table Examination- negative Loop recorder placed in cardiovascular lab director 01/18/17 continue current management per medical team continue telemetric monitoring Continue - Aspirin 81mg PO Daily - Plavix 75mg PO Daily - Crestor 5mg PO HS 01/18/17 EKG- Normal sinus rhythm, RBBB, prolonged QRS/QTc 12/31/16 EKG- Official read- shows normal sinus rhythm, RBBB, Minimal voltage criteria for LVH (might be normal variant). 01/18/17 Echo: preliminary EF 59%- official read pending Holter monitor: (02/25/15) 24 hour holter reading revealed sinus rhythm. HR fluctuated between 45 and 113. Mean HR 72 BPM. No malignant arrhythmias or pauses noted. case discussed with Dr. Sergo Harper PGY1 Status: Acute (2) Status post placement of implantable loop recorder Assessment & Plan: Implantable Loop Recorder Insertion Consent: Detailed explanation of the procedure, treatment options, risks including but not limited to infection and bleeding, and benefits were explained to the patient. A written informed consent was obtained. Technique: A time out was preformed identifying the correct procedure, the correct location with the nursing staff. The left breast was prepped with 2% chlorhexidine and draped with a full length sterile sheet in the usual fashion. 1% lidocaine was administered subcutaneously for local anesthesia. All participating personnel donned sterile gown and gloves in addition to standard sterile precautions. Pre-packaged skin incision blade was used to make an incision in the skin. A subcutaneous tunnel was created and the loop recorder was put into position. Placement was confirmed by the attending at the bedside. The incision was closed with 2 steri-strips. A 1x1 gauze was folded into quarters and adhered to the incision with a tegaderm dressing. The patient tolerated the procedure well and there were no complications. Status: Resolved <Omar Trotter - Last Filed: 01/28/17 09:49> Objective - Vital Signs/Intake and Output Vital Signs (last 24 hours): Temp Pulse Resp BP Pulse Ox 98.4 F 61 20 147/66 96 01/19/17 08:26 01/19/17 10:56 01/19/17 08:26 01/19/17 08:26 01/19/17 08:26 - Labs Labs: 01/19/17 07:54 01/19/17 07:54 PT 11.3 SECONDS (9.7-12.2) 01/15/17 19:20 INR 1.0 01/15/17 19:20 APTT 26 SECONDS (21-34) 01/15/17 19:20 Attending/Attestation - Attestation I have personally seen and examined this patient.: Yes I have fully participated in the care of the patient.: Yes I have reviewed all pertinent clinical information, including history, physical exam and plan: Yes Notes (Text): 01/28/17 09:47 loop recorder site c/d/i stable f/u in office
--- NOTE | 2017-01-19 21:18 | DS ---
DISCHARGE DIAGNOSES: Syncope recurrent, rule out secondary to seizure, rule out secondary to cardiac arrhythmia, status post loop recorder insertion, hypertension, hyperlipidemia, diabetes mellitus, hi story of cerebrovascular accident with minimal right-sided weakness, benign prostatic hypertrophy. HISTORY OF PRESENT ILLNESS: The patient is a 71-year-old male with past medical history of hypertens ion, diabetes mellitus, hyperlipidemia, history of cerebrovascular accident about 11 years ago, who h as been following up with Dr. Newton, primary care physician, Dr. Mar as urologist, Dr. Potter as neurology, came in to the ED after patient had a syncopal episode. The patient had multiple syncopal episodes in the past 4 months and patient is being admitted for further evaluation and management. This morning, patient is feeling much better. Denies any headache, dizziness. Denies any chest pain , shortness of breath or wheezing. Denies any nausea, vomiting, abdominal pain, diarrhea or constipa tion. Denies any urinary complaints. Denies any leg pains or leg cramps. Denies any other joint sw elling. Denies any other neurologic symptoms. All other systems reviewed and were found to be negat kim. PHYSICAL EXAMINATION: GENERAL: Elderly male lying in bed in no acute distress. VITAL SIGNS: Blood pressure 147/66, pulse 68, respirations 20, temperature 98.4 degrees Fahrenheit, O2 sats 96% on room air. HEENT: Pupils equal, round, and reacting to light and accommodation. Extraocular muscles intact. N o icterus, no pallor. No oral thrush. No pharyngeal congestion. NECK: Supple. No JVD, no thyromegaly. CHEST: Moving equally bilaterally on respiration. LUNGS: Bilateral vesicular breath sounds. No wheezing, no rhonchi. CARDIOVASCULAR: S1, S2 present, regular. ABDOMEN: Soft, nontender. Bowel sounds present. No guarding, no rigidity, no rebound tenderness no francisco. CENTRAL NERVOUS SYSTEM: Alert, awake, oriented x 3. No focal deficits noted. EXTREMITIES: No edema. Palpable peripheral pulses. LABORATORY DATA: Done from this morning, WBC 6.7, hemoglobin 13.2, hematocrit 39.1, platelets 315. Sodium 137, potassium 3.9, chloride 100, bicarbonate 25, BUN 20, creatinine 0.7, glucose 116, calcium 8.7, total bilirubin 0.5, AST 20, ALT 20, alkaline phosphatase 51, total protein 6.5, albumin 3.7. TRE negative. Cholesterol is 78, triglycerides 94, LDL less than 30, HDL 44, vitamin B12 less than 1 59. Folate 18.4. TSH 0.53, hemoglobin A1c 6.1. Chest x-ray negative for any infiltrate. Evidence of prior granulomatous infection. Head CT negative for any acute infarction. A CT orbits, no eviden ce of fracture, mucosa thickening noted in the maxillary and ethmoid sinuses bilaterally. Degenerati ve changes in the cervical spine. Carotid Doppler negative for any carotid stenosis. Shoulder x-ray , degenerative changes. Wrist x-ray: No acute displaced fracture, dislocation or significant joint effusion. MRI of the brain: No acute intracranial hemorrhage, chronic white matter and basal nuclei ischemic changes, mild generalized volume loss. EEG abnormal, consistent with persistent fast beat activities, probable drug effect of his medication. HOSPITAL COURSE: The patient was admitted to the hospital. He was ruled out for any acute [place]. MRI was negative. All the workup for CVA is negative. The patient did not have any EKG changes or cardi ac arrhythmias noted while he was in the hospital. The patient underwent tilt table test done by Dr. Trotter. The patient was seen by neurology, cardiology. Tilt table was normal. A loop recorder w as placed by Dr. Trotter. The patient was found to be having low B12 levels for which he has been getting iron supplementation and B12. The patient was started on his home medication as all the work up is negative, underwent loop recorder placement and patient requires continuous EEG monitoring as o utpatient as recommended by Dr. Potter. The patient is cleared by all the consultants. The patient i s being discharged. I advised patient to follow up as outpatient. His Aggrenox was discontinued and patient was started on aspirin and Plavix by neurology. CONDITION UPON DISCHARGE: The patient is alert, awake, oriented x 3 and hemodynamically stable. DISCHARGE INSTRUCTIONS: Follow up with PMD. Follow up with cardiology. Follow up with neurology. Needs outpatient ambulatory EEG monitoring and follow up with cardiology for loop recorder. DISCHARGE MEDICATIONS: Aspirin 81 mg daily, Plavix 75 mg daily, Lipitor 10 mg daily, Zestril 2.5 mg daily, Januvia with metformin 1 tab daily, Flomax 0.4 mg at bedtime. DISCHARGE DIET: Low sodium, low cholesterol, 1800 calorie ADA diet. ACTIVITY: As tolerated. CONDITION UPON DISCHARGE: The patient is alert, awake, oriented x 3 and hemodynamically stable. Brayan Forbes MD cc: [id number] TT: 01/19/2017 21:17:59 raghu
--- NOTE | 2017-01-20 09:01 | CARD ---
APPROVED REPORT EKG Measurement Heart [id number] <Conclusion> Normal sinus rhythm Right bundle branch block Minimal voltage criteria for LVH, may be normal variant Abnormal ECG
--- NOTE | 2017-01-22 12:42 | OP ---
PROCEDURE DATE: 01/18/2017 PROCEDURE: Tilt table test. INDICATIONS: Syncope. It was decided, due to the patient's syncope, to bring the patient to the labor training manager for a head-up tilt table test at 75 degrees. The patient was placed on the table, tilted 75 degrees after IV hydration. After 25-30 minutes, ther e were no symptoms. The patient had a negative tilt table test. It was decided to go ahead with a l oop recorder for further evaluation of his syncope. Omar Trotter MD cc: [id number] TT: 01/22/2017 12:41:35 mn
--- NOTE | 2017-01-22 12:45 | OP ---
PROCEDURE DATE: 01/18/2017 INDICATION: Syncope. This is a 71-year-old male with an indication of syncope. Tilt table negative. It was decided to go ahead with loop recorder. The patient's consent was obtained, antibiotics started. This was perfor med in the cardiac metallurgical laboratory assistant holding area. The patient was draped in a sterile manner, prepped in a s terile manner. After appropriate lidocaine was administered, using the loop recorder scalpel, a smal l incision was made to allow the loop recorder to be injected subcutaneously successfully. This was a successful loop recorder implantation. No complications. Hemostasis was observed. The wound was sterilely prepared and Tegaderm placed and the patient was transferred back to his room and it was a successful implantation of a loop recorder. Omar Trotter MD cc: [id number] TT: 01/22/2017 12:44:49 en
--- NOTE | 2017-01-22 15:14 | CARD ---
APPROVED REPORT EXAM: Two-dimensional and M-mode echocardiogram with Doppler and color Doppler. Other Information Quality : GoodRhythm : NSR INDICATION Syncope POSSIBLE RIGHT PARIETAL INFARCT M-Mode DIMENSIONS RVDd1.44 (2.1-3.2cm)Left Atrium (MM)3.32 (2.5-4.0cm) IVSd1.02 (0.7-1.1cm)Aortic Root3.29 (2.2-3.7cm) LVDd4.91 (4.0-5.6cm)Aortic Cusp Exc.1.82 (1.5-2.0cm) PWd0.99 (0.7-1.1cm)FS (%) 32 % LVDs3.36 (2.0-3.8cm)LVEF (%)59 (>50%) Mitral Valve MV E Uwkyhjfn11.9cm/sMV A Kglmglru65.6cm/sE/A ratio0.7 TDI E/Lateral E'0.0E/Medial E'0.0 Tricuspid Valve TR Peak Uvumpose094ax/sTR Peak Gr.[id number] LEFT VENTRICLE The left ventricle is normal size. There is borderline concentric left ventricular hypertrophy. EF = 65-70% No regional wall motion abnormalities noted. Transmitral Doppler flow pattern is Grade I-abnormal relaxation pattern. No left ventricle thrombus noted on this study. There is no ventricular septal defect visualized. There is no left ventricular aneurysm. There is no mass noted in the left ventricle. RIGHT VENTRICLE The right ventricle is normal size. There is normal right ventricular wall thickness. The right ventricular systolic function is normal. ATRIA The left atrium size is normal. The right atrium size is normal. The interatrial septum is intact with no evidence for an atrial septal defect. AORTIC VALVE The aortic valve is mildly sclerotic. No aortic regurgitation is present. There is no aortic valvular stenosis. There is no aortic valvular vegetation. MITRAL VALVE Mitral annular calcification is mild. There is no evidence of mitral valve prolapse. There is no mitral valve stenosis. There is no mitral valve regurgitation noted. TRICUSPID VALVE The tricuspid valve is normal in structure There is mild tricuspid regurgitation. There is no tricuspid valve prolapse or vegetation. There is no tricuspid valve stenosis. PULMONIC VALVE The pulmonary valve is normal in structure and function. There is no pulmonic valvular regurgitation. There is no pulmonic valvular stenosis. GREAT VESSELS The aortic root is normal in size. The ascending aorta is normal in size. The pulmonary artery is normal. The IVC is normal in size and collapses >50% with inspiration. PERICARDIAL EFFUSION The pericardium appears normal. There is no pleural effusion. <Conclusion> EF = 65-70% There is borderline concentric left ventricular hypertrophy. Transmitral Doppler flow pattern is Grade I-abnormal relaxation pattern. There is mild tricuspid regurgitation.
== END 2017-01-19 16:45 | disposition home or self-care (01) | DRG 261 ==
LOC: C.ER 18:08 → C.9E 21:28 → C.6T 01-16 00:32
PROVIDERS: ADMIT Internal Medicine; ATTEND Internal Medicine
PROC: 4A02XFZ Measurement of Cardiac Rhythm, External Approach (ICD-10-PCS; principal; 2017-01-18)
PROC: 0JH632Z Insertion of Monitoring Device into Chest Subcutaneous Tissue and Fascia, Percutaneous Approach (ICD-10-PCS; 2017-01-18)
PROC: 4A03XB1 Measurement of Arterial Pressure, Peripheral, External Approach (ICD-10-PCS; 2017-01-18)
DX: R55 Syncope and collapse (principal); I69.351 Hemiplegia and hemiparesis following cerebral infarction affecting right dominant side; E11.9 Type 2 diabetes mellitus without complications; I10 Essential (primary) hypertension; N40.0 Benign prostatic hyperplasia without lower urinary tract symptoms; E78.5 Hyperlipidemia, unspecified; E53.8 Deficiency of other specified B group vitamins; I45.10 Unspecified right bundle-branch block; I69.392 Facial weakness following cerebral infarction; Z79.4 Long term (current) use of insulin; Z87.891 Personal history of nicotine dependence; Z87.440 Personal history of urinary (tract) infections

== ENCOUNTER 2017-06-05 20:17 | Observation (INO) | payer MEDICARE ==
[2017-06-05 20:17] VITALS: BMI 25.3
[2017-06-05 21:21] LABS: BASO # 0.1 K/uL (0.0-0.2); BASO % 1.3 % (0.0-2.0); EOS # 0.1 K/uL (0.0-0.7); EOS % 2.2 % (0.0-4.0); HEMATOCRIT 40.8 % (35.0-51.0); LYMPH # 1.5 K/uL (1.0-4.3); LYMPH % 23.2 % (20.0-40.0); MEAN CELL VOLUME 87.7 fL (80.0-94.0); MEAN CORPUSCULAR HEMOGLOBIN 29.6 pg (27.0-31.0); MEAN CORPUSCULAR HGB CONC 33.8 g/dL (33.0-37.0); MEAN PLATELET VOLUME 8.3 fL (7.2-11.7); MONO # 0.4 K/uL (0.0-0.8); MONO % 6.3 % (0.0-10.0); RED CELL DISTRIBUTION WIDTH 13.7 % (11.5-14.5); WHITE BLOOD COUNT 6.3 K/uL (4.8-10.8)
[2017-06-05 21:37] LABS: CHLORIDE 103 mmol/L (98-107); SODIUM 138 mmol/L (132-148)
[2017-06-05 21:38] LABS: POTASSIUM 3.7 mmol/L (3.6-5.2)
[2017-06-05 21:40] LABS: ALB/GLOB RATIO 1.7 (1.0-2.1); ALKALINE PHOSPHATASE 55 U/L (38-126); ALT/SGPT 24 U/L (21-72); AST/SGOT 20 U/L (17-59); BILIRUBIN,TOTAL 0.4 mg/dL (0.2-1.3); BLOOD UREA NITROGEN 18 mg/dL (9-20); CARBON DIOXIDE 19 mmol/L (22-30); GFR AFRICAN-AMERICAN > 60; GLUCOSE,RANDOM 135 mg/dL (75-110); TOTAL PROTEIN 6.8 g/dL (6.3-8.3)
[2017-06-05 21:41] LABS: CALCIUM 8.7 mg/dl (8.6-10.4); MAGNESIUM 1.8 mg/dL (1.6-2.3)
[2017-06-05] MEDS ORDERED: Sodium Chloride 0.9% 500 ML IV ONE ×2 (21:46→21:54)
--- NOTE | 2017-06-05 22:12 | CT ---
EXAM: CT Head Without Intravenous Contrast CLINICAL HISTORY: 71 years old, male; Signs and symptoms; Syncope and collapse TECHNIQUE: Axial computed tomography images of the head/brain without intravenous contrast. All CT scans at this facility use one or more dose reduction techniques, viz.: automated exposure control; ma/kV adjustment per patient size (including targeted exams where dose is matched to indication; i.e. head); or iterative reconstruction technique. Coronal and sagittal reformatted images were created and reviewed. COMPARISON: No relevant prior studies available. FINDINGS: Brain: Prominence of the sulci and ventricular system consistent with atrophy. Hypodensity throughout the white matter consistent with small vessel disease. No mass, mass effect, or midline shift. No hemorrhage. Ventricles: No hydrocephalus. Bones/joints: Unremarkable. No acute fracture. Soft tissues: Unremarkable. Sinuses: Mucosal disease versus small amount of fluid right maxillary sinus. Mastoid air cells: Unremarkable as visualized. No mastoid effusion. IMPRESSION: No acute intracranial abnormality.
--- NOTE | 2017-06-05 22:51 | C.PDOC ---
History Of Present Illness Pt was eating dinner with family when he passed out and became unresponsive. 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) Current Symptoms Are (Timing): Better Fall Associated With With Symptoms: No Severity: Severe Additional History Per: Prior Records - Symptoms Of CVA Recent Head Trauma: No Past Medical History Reviewed: Historical Data, Nursing Documentation, Vital Signs Vital Signs: Last Vital Signs Temp 97.9 F 06/05/17 20:18 Pulse 64 06/05/17 20:18 Resp 18 06/05/17 20:18 BP 103/58 L 06/05/17 20:18 Pulse Ox 99 06/05/17 22:53 - Medical History PMH: Diabetes, HTN, Hypercholesterolemia - [facility] Procedures INSERT OF MONITOR DEV INTO CHEST SUBCU/FASCIA, PERC APPROACH (01/15/17) MEASURE OF ARTERIAL PRESSURE, PERIPHERAL, RESP THERAPIST APPROACH (01/15/17) MEASUREMENT OF CARDIAC RHYTHM, EXTERNAL APPROACH (01/15/17) Family History: States: Unknown Family Hx - Social History Hx Alcohol Use: No Hx Substance Use: No - Immunization History Hx Influenza Vaccination: Yes Review Of Systems Except As Marked, All Systems Reviewed And Found Negative. Constitutional: Negative for: Fever Cardiovascular: Negative for: Chest Pain Respiratory: Negative for: Shortness of Breath Gastrointestinal: Positive for: Vomiting (x1). Negative for: Abdominal Pain Musculoskeletal: Negative for: Neck Pain Neurological: Negative for: Weakness, Numbness, Seizures, Headache Physical Exam - Physical Exam Appears: Non-toxic, No Acute Distress Skin: Normal Color, Warm, Dry Head: Atraumatic, Normacephalic Eye(s): bilateral: PERRL, EOMI Neck: Normal ROM, Supple Cardiovascular: Rhythm Regular Respiratory: Normal Breath Sounds, No Accessory Muscle Use Gastrointestinal/Abdominal: Soft, No Tenderness Extremity: Normal ROM, No Calf Tenderness Neurological/Psych: Oriented x3, Normal Motor, Normal Sensation ED Course And Treatment - Laboratory Results Result Diagrams: 06/05/17 21:12 06/05/17 21:12 Lab Interpretation: No Acute Changes ECG: Interpreted By Me, Viewed By Me ECG Rhythm: Sinus Rhythm, R BBB, Nonspecific Changes ECG Interpretation: No Changes From Prior Rate From EC O2 Sat by Pulse Oximetry: 99 Pulse Ox Interpretation: Normal - CT Scan/US CT head Other Rad Studies (CT/US): Read By Radiologist, Radiology Report Reviewed CT/US Interpretation: IMPRESSION: No acute intracranial abnormality. Progress - Interventions Interventions:: Observation, Intravenous fluid - Data Reviewed Data Reviewed: Lab, Diagnostic imaging, EKG, Old records - Continuity of Care Discussed patient case with:: Patient, Family-HIPPA compliant, ED Nurse, On- call PMD-pt unassigned Disposition Discussed With : Brigida Bui Comment: He accepted pt on his service and gave admitting orders to the nurse. Doctor Will See Patient In The: Hospital Counseled Patient/Family Regarding: Studies Performed, Diagnosis - Disposition Disposition: HOSPITALIZED Disposition Time: 23:02 Condition: FAIR - Clinical Impression Clinical Impression: Syncope
--- NOTE | 2017-06-06 08:36 | RAD ---
PROCEDURE: CHEST RADIOGRAPH, 1 VIEW HISTORY: Syncope COMPARISON: Comparison is made to 01/15/2017 FINDINGS: LUNGS: Prominent reticular opacities are again seen. No evidence of new infiltrate or consolidation in the lungs. PLEURA: No pneumothorax or pleural fluid seen. CARDIOVASCULAR: Normal. OSSEOUS STRUCTURES: No significant abnormalities. VISUALIZED UPPER ABDOMEN: Normal. OTHER FINDINGS: None. IMPRESSION: No active disease.
[2017-06-06] MEDS ORDERED: Pneumococcal 23-Valent Vaccine IM ONE (10:00)
[2017-06-06] MEDS: Enoxaparin 40 mg Syringe SC SCH (10:51)
--- NOTE | 2017-06-06 13:39 | CP.PCM.CON ---
History of Present Illness - History of Present Illness History of Present Illness: I was asked to see patient by Dr. Bui. Patient is a 71 year old male with a history of HTN, hyperchoelsterolemia and DM who presents with syncope. The patient has had previous episodes of syncope. He had tilt table test and loop recorder placement with another flue tile press operator. HE states he had 3 glases of Sangria and then had a syncopal event. This occurred while at a family function. He denies chest pain or palpitations. Review of Systems - Constitutional Constitutional: absent: As Per HPI, Anorexia, Chills, Daytime Sleepiness, Excessive Sweating, Fatigue, Fever, Frequent Falls, Headache, Increased Appetite , Lethargy, Malaise, Night Sweats, Snoring, Sleep Apnea, Weight Gain, Weight Loss, Weakness, Other - EENT Eyes: absent: As Per HPI, Blind Spots, Blurred Vision, Change in Vision, Decreased Night Vision, Diplopia, Discharge, Dry Eye, Exophthalmos, Floaters, Irritation, Itchy Eyes, Loss of Peripheral Vision, Pain, Photophobia, Requires Corrective Lenses, Sees Flashes, Spots in Vision, Tunnel Vision, Other Visual Disturbances, Loss of Vision, Other Ears: absent: As Per HPI, Decreased Hearing, Ear Discharge, Ear Pain, Tinnitus, Abnormal Hearing, Disequilibrium, Dizziness, Other Nose/Mouth/Throat: absent: As Per HPI, Epistaxis, Nasal Congestion, Nasal Discharge, Nasal Obstruction, Nasal Trauma, Nose Pain, Post Nasal Drip, Sinus Pain, Sinus Pressure, Bleeding Gums, Change in Voice, Dental Pain, Dry Mouth, Dysphagia, Halitosis, Hoarsness, Lip Swelling, Mouth Lesions, Mouth Pain, Odynophagia, Sore Throat, Throat Swelling, Tongue Swelling, Facial Pain, Neck Pain, Neck Mass, Other - Cardiovascular Cardiovascular: Syncope - Respiratory Respiratory: absent: As Per HPI, Cough, Dyspnea, Hemoptysis, Dyspnea on Exertion , Wheezing, Snoring, Stridor, Pain on Inspiration, Chest Congestion, Excessive Mucous Production, Change in Mucous Color, Pain with Coughing, Other - Gastrointestinal Gastrointestinal: absent: As Per HPI, Abdominal Pain, Belching, Bloating, Change in Bowel Habits, Change in Stool Character, Coffee Ground Emesis, Constipation, Cramping, Diarrhea, Dyspepsia, Dysphagia, Early Satiety, Excessive Flatus, Fecal Incontinence, Heartburn, Hematemesis, Hematochezia, Loose Stools, Melena, Nausea, Odynophagia, Temesmus, Vomiting, Other - Genitourinary Genitourinary: absent: As Per HPI, Change in Urinary Stream, Difficulty Urinating, Dysuria, Flank Pain, Hematuria, Pyuria, Nocturia, Urinary Incontinence, Urinary Frequency, Urinary Hesitance, Urinary Urgency, Voiding Freq/Small Amts, Freq UTI, Hx Renal/Bladder Calculi, Hx /Renal Surgery, Bladder Distension, Other - Musculoskeletal Musculoskeletal: absent: As Per HPI, Abnormal Gait, Arthralgias, Atrophy, Back Pain, Deformity, Joint Swelling, Limited Range of Motion, Loss of Height, Muscle Cramps, Muscle Weakness, Myalgias, Neck Pain, Numbness, Radiating Pain into Limb, Stiffness, Tingling, Other - Integumentary Integumentary: absent: As Per HPI, Acne, Alopecia, Bleeding Lesions, Change in Hair, Change in Nails, Change in Pigmentation, Changing Lesions, Dry Skin, Erythema, Furuncle, Hirsutism, Lesions, New Lesions, Non-Healing Lesions, Photosensitivity, Pruritus, Rash, Skin Pain, Skin Ulcer, Sores, Striae, Swelling , Unusual Bruising, Wounds, Jaundice, Other - Neurological Neurological: absent: As Per HPI, Abnormal Gait, Abnormal Hearing, Abnormal Movements, Abnormal Speech, Behavioral Changes, Burning Sensations, Confusion, Convulsions, Disequilibrium, Dizziness, Numbness, Focal Weakness, Frequent Falls , Headaches, Lack of Coordination, Loss of Vision, Memory Loss, Paresthesias, Radicular Pain, Restless Legs, Sensory Deficit, Syncope, Tingling, Tremor, Vertigo, Weakness, Other Visual Disturbances, Other - Psychiatric Psychiatric: absent: As Per HPI, Abnormal Sleep Pattern, Anhedonia, Anxiety, Auditory Hallucinations, Behavioral Changes, Change in Appetite, Change in Libido, Confusion, Depression, Difficulty Concentrating, Hallucinations, Homicidal Ideation, Hopelessness, Irritability, Memory Loss, Mood Swings, Panic Attacks, Paranoia, Suicidal Ideation, Visual Hallucinations, Tactile Hallucinations, Other - Endocrine Endocrine: absent: As Per HPI, Change in Body Appearance, Change in Libido, Cold Intolorance, Deepening of Voice, Excessive Sweating, Fatigue, Flushing, Heat Intolorance, Increase in Ring/Shoe/Hat Size, Palpitations, Polydipsia, Polyphagia, Polyuria, Other - Hematologic/Lymphatic Hematologic: absent: As Per HPI, Easy Bleeding, Easy Bruising, Lymphadenopathy, Other Past Patient History - Infectious Disease Hx of Infectious Diseases: None - Past Medical History & Family History Past Medical History?: Yes - Past Social History Smoking Status: Former Smoker - CARDIAC Hx Hypercholesterolemia: Yes Hx Hypertension: Yes - PULMONARY Hx Respiratory Disorders: No - NEUROLOGICAL Hx Neurological Disorder: Yes HX Cerebrovascular Accident: Yes (permanent left facial droop 2005) Other/Comment: Left sided weakness, residual of stroke eleven years ago. - HEENT Hx HEENT Problems: No - RENAL Hx Chronic Kidney Disease: No - ENDOCRINE/METABOLIC Hx Endocrine Disorders: Yes Hx Diabetes Mellitus Type 2: Yes - HEMATOLOGICAL/ONCOLOGICAL Hx Blood Disorders: No - INTEGUMENTARY Hx Dermatological Problems: No - MUSCULOSKELETAL/RHEUMATOLOGICAL Hx Musculoskeletal Disorders: Yes Hx Falls: Yes - GASTROINTESTINAL Hx Gastrointestinal Disorders: Yes Other/Comment: colonoscopy - GENITOURINARY/GYNECOLOGICAL Hx Genitourinary Disorders: No Hx Prostate Problems: Yes - PSYCHIATRIC Hx Substance Use: No - SURGICAL HISTORY Hx Surgeries: No - ANESTHESIA Hx Anesthesia: Yes Hx Anesthesia Reactions: No Meds Allergies/Adverse Reactions: Allergies Allergy/AdvReac Type Severity Reaction Status Date / Time No Known Allergies Allergy Verified 01/15/17 18:16 - Medications Medications: Current Medications Aspirin (Ecotrin) 81 mg PO DAILY [facility] Last Admin: 06/06/17 10:50 Dose: 81 mg Clopidogrel Bisulfate (Plavix) 75 mg PO DAILY [facility] Last Admin: 06/06/17 10:51 Dose: 75 mg Cyanocobalamin (Vitamin B12 1000 Mcg Tab) 1,000 mcg PO DAILY [facility] Last Admin: 06/06/17 10:59 Dose: 1,000 mcg Enoxaparin Sodium (Lovenox) 40 mg SC DAILY [facility] Last Admin: 06/06/17 10:51 Dose: 40 mg Lisinopril (Zestril) 2.5 mg PO DAILY [facility] Last Admin: 06/06/17 10:59 Dose: 2.5 mg Metformin HCl (Glucophage) 500 mg PO DAILY@0800 [facility] Rosuvastatin Calcium (Crestor) 5 mg PO HS [facility] Last Admin: 06/06/17 10:50 Dose: Not Given Sitagliptin Phosphate (Januvia) 50 mg PO DAILY [facility] Last Admin: 06/06/17 10:50 Dose: 50 mg Tamsulosin HCl (Flomax) 0.4 mg PO HS [facility] Physical Exam - Constitutional Appears: Non-toxic - Head Exam Head Exam: NORMAL INSPECTION - Eye Exam Eye Exam: Normal appearance - ENT Exam ENT Exam: Mucous Membranes Moist - Neck Exam Neck exam: Positive for: Full Rom - Respiratory Exam Respiratory Exam: NORMAL BREATHING PATTERN - Cardiovascular Exam Cardiovascular Exam: REGULAR RHYTHM - GI/Abdominal Exam GI & Abdominal Exam: Normal Bowel Sounds - Rectal Exam Rectal Exam: Deferred - Extremities Exam Extremities exam: Negative for: pedal edema - Back Exam Back exam: NORMAL INSPECTION - Neurological Exam Neurological exam: Alert, Oriented x3 - Psychiatric Exam Psychiatric exam: Normal Affect - Skin Skin Exam: Normal Color Results - Vital Signs Recent Vital Signs: Last Vital Signs Temp 98.5 F 06/06/17 08:15 Pulse 77 06/06/17 08:57 Resp 18 06/06/17 08:15 BP 125/68 06/06/17 08:15 Pulse Ox 97 06/06/17 08:15 - Labs Result Diagrams: 06/05/17 21:12 06/05/17 21:12 Labs: Laboratory Results - last 24 hr 06/06/17 06/06/17 06/06/17 05:16 06:31 12:03 POC Glucose (mg/dL) 110 94 Total Creatine Kinase 36 L CK-MB (Mass) 0.30 Troponin I, Quant < 0.0120 - EKG Data EKG Interpreted by: Myself EKG shows normal: Sinus rhythm Assessment & Plan (1) Syncope Assessment and Plan: will call for interrogation of loop recorder Status: Acute (2) HTN (hypertension) Assessment and Plan: blood pressure control. Status: Acute (3) Diabetes mellitus Status: Acute
[2017-06-06 16:54] VITALS: RESP 20
[2017-06-07] MEDS: Enoxaparin 40 mg Syringe SC SCH (09:04)
--- NOTE | 2017-06-07 11:16 | CP.PCM.PN ---
Subjective - Date & Time of Evaluation Date of Evaluation: 06/07/17 Time of Evaluation: 11:15 - Subjective Subjective: Progress note. Attending: Dr. Bui This is a 71 yo male with past medical hx of HTN, HLD, DM, recurrent syncopal episodes, loop recorder presenting with chief complaint of syncope. This has happened before and the loop recorder needs to be interrogated. patient was drinking wine with his family and had 3 glasses of sangria, after which he passed out. Patient was brought into the ER by family. Normally checks blood sugar daily and says it does not run low. However, he is unsure about the number that day of the event. Today, he has no complaints. No fevers, chills, vomiting, diarrhea, chest pain, dizziness, shortness of breath. PMH: HTN, HLD, DM, loop recorder, syncope FH: Denies Social hx: Denies smoking, drinking, drug use. 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 Allergies: NKDA Objective - Vital Signs/Intake and Output Vital Signs (last 24 hours): Temp Pulse Resp BP Pulse Ox 98.4 F 81 20 121/69 94 L 06/07/17 08:25 06/07/17 08:25 06/07/17 08:25 06/07/17 08:25 06/07/17 08:25 Intake and Output: 06/07/17 06/07/17 06:59 18:59 Intake Total 390 Output Total 200 Balance 190 - Medications Medications: Current Medications Aspirin (Ecotrin) 81 mg PO DAILY [facility] Last Admin: 06/07/17 09:04 Dose: 81 mg Clopidogrel Bisulfate (Plavix) 75 mg PO DAILY [facility] Last Admin: 06/07/17 09:04 Dose: 75 mg Cyanocobalamin (Vitamin B12 1000 Mcg Tab) 1,000 mcg PO DAILY [facility] Last Admin: 06/07/17 09:06 Dose: 1,000 mcg Enoxaparin Sodium (Lovenox) 40 mg SC DAILY [facility] Last Admin: 06/07/17 09:04 Dose: 40 mg Lisinopril (Zestril) 2.5 mg PO DAILY [facility] Last Admin: 06/07/17 09:06 Dose: 2.5 mg Metformin HCl (Glucophage) 500 mg PO DAILY@0800 [facility] Last Admin: 06/07/17 09:04 Dose: 500 mg Rosuvastatin Calcium (Crestor) 5 mg PO HS [facility] Last Admin: 06/06/17 22:08 Dose: 5 mg Sitagliptin Phosphate (Januvia) 50 mg PO DAILY [facility] Last Admin: 06/07/17 09:04 Dose: 50 mg Tamsulosin HCl (Flomax) 0.4 mg PO HS [facility] Last Admin: 06/06/17 22:09 Dose: 0.4 mg - Labs Labs: PT 11.2 SECONDS (9.7-12.2) 06/05/17 21:12 INR 1.0 06/05/17 21:12 APTT 28 SECONDS (21-34) 06/05/17 21:12 - Constitutional Appears: Non-toxic, No Acute Distress - Head Exam Head Exam: ATRAUMATIC, NORMAL INSPECTION, NORMOCEPHALIC - Eye Exam Eye Exam: EOMI - ENT Exam ENT Exam: Mucous Membranes Moist - Neck Exam Neck Exam: Full ROM, Normal Inspection - Respiratory Exam Respiratory Exam: NORMAL BREATHING PATTERN. absent: Respiratory Distress - Cardiovascular Exam Cardiovascular Exam: +S1, +S2 - GI/Abdominal Exam GI & Abdominal Exam: Soft, Normal Bowel Sounds. absent: Tenderness - Extremities Exam Extremities Exam: Full ROM, Normal Inspection - Neurological Exam Neurological Exam: Alert, Awake, Oriented x3 - Psychiatric Exam Psychiatric exam: Normal Affect, Normal Mood - Skin Skin Exam: Dry, Intact, Normal Color, Warm Assessment and Plan - Assessment and Plan (Free Text) Assessment: This is a 71 yo male with past medical hx of HTN, HLD, DM, syncope, loop recorder presenting after syncopal episode 1. Syncope -loop recorder to be interrogated -echo from 01/04 shows normal EF, LVH, mild TR, some mild diastolic dx -cardiology consulted. recs appreciated. -pt had recent cardiac cath, will look up report -continue asa 81 mg po daily -continue plavix 75 daily 2. hx of HTN -continue lisinopril 2.5 daily 3 hx of BPH -cont flomax daily 4. hx of DM -cont metformin -continue sitagliptin 5. hx of B12 deficiency -continue vitamin B12 1000 daily 6. hx of HLD -continue crestor PO HS 7. GI/DVT -continue lovenox -continue protonix daily Dispo: plan for discharge home discussed with Dr. Bui
[2017-06-07 11:38] LABS: BASO # 0.1 K/uL (0.0-0.2); BASO % 0.7 % (0.0-2.0); EOS # 0.1 K/uL (0.0-0.7); EOS % 0.9 % (0.0-4.0); HEMATOCRIT 42.5 % (35.0-51.0); LYMPH % 10.2 % (20.0-40.0); MEAN CELL VOLUME 87.6 fL (80.0-94.0); MEAN CORPUSCULAR HEMOGLOBIN 29.4 pg (27.0-31.0); MEAN CORPUSCULAR HGB CONC 33.6 g/dL (33.0-37.0); MEAN PLATELET VOLUME 9.1 fL (7.2-11.7); MONO # 0.6 K/uL (0.0-0.8); MONO % 6.1 % (0.0-10.0); NRBC % 0.1 % (0.0-2.0); RED CELL DISTRIBUTION WIDTH 13.5 % (11.5-14.5); WHITE BLOOD COUNT 9.3 K/uL (4.8-10.8)
[2017-06-07 11:46] LABS: ALB/GLOB RATIO 1.4 (1.0-2.1); ALKALINE PHOSPHATASE 56 U/L (38-126); ALT/SGPT 23 U/L (21-72); AST/SGOT 14 U/L (17-59); BILIRUBIN,TOTAL 0.5 mg/dL (0.2-1.3); BLOOD UREA NITROGEN 17 mg/dL (9-20); CALCIUM 9.5 mg/dl (8.6-10.4); CARBON DIOXIDE 28 mmol/L (22-30); CHLORIDE 99 mmol/L (98-107); GFR AFRICAN-AMERICAN > 60; GLUCOSE,RANDOM 207 mg/dL (75-110); MAGNESIUM 1.7 mg/dL (1.6-2.3); PHOSPHOROUS 2.8 mg/dL (2.5-4.5); POTASSIUM 4.1 mmol/L (3.6-5.2); SODIUM 140 mmol/L (132-148); TOTAL PROTEIN 6.8 g/dL (6.3-8.3)
[2017-06-07 12:38] VITALS: BP 110/73; PULSE 98; TEMP 98.2; O2SAT 97
--- NOTE | 2017-06-07 12:55 | HP ---
HISTORY OF PRESENT ILLNESS: This is a 71-year-old male who does complain of a syncopal episode. The patient had several glasses of Sangria and then patient had faint. The patient had recurrent syncopal episode, had a loop recorder. Extensive workup by Neurology, Cardiology, and Electrophysiology, nothing was seen. The patient's states he noticed that he gets syncope after he eats. The patient has a long history of diabetes for which he gets Janumet. The patient has a history of recurrent strokes. PHYSICAL EXAMINATION: GENERAL: The patient is awake, alert and oriented, very pleasant male. HEENT: Within normal limits. NECK: Supple. CHEST: Symmetrical. HEART: Regular. ABDOMEN: Soft. EXTREMITIES: No edema. IMPRESSION: The patient with recurrent syncopal episode, rule out hypoglycemia, doubt arrhythmia and the patient has a loop recorder and the patient gets possible seizure. The patient in bedrest and we will check blood sugar. Brigida Bui MD
== END 2017-06-07 12:37 | disposition home or self-care (01) ==
LOC: C.ER 20:17 → C.6T 23:03
PROVIDERS: ADMIT Internal Medicine Pulmonary Disease; ATTEND Internal Medicine Pulmonary Disease
DX: R55 Syncope and collapse (principal); E78.5 Hyperlipidemia, unspecified; E11.9 Type 2 diabetes mellitus without complications; I10 Essential (primary) hypertension; N40.0 Benign prostatic hyperplasia without lower urinary tract symptoms; Z87.891 Personal history of nicotine dependence; Z86.73 Personal history of transient ischemic attack (TIA), and cerebral infarction without residual deficits
CPT/HCPCS: 36415; 70450; 71010; 80053; 82948; 83735; 84100; 84484; 85025; 85610; 85730; 96360; 99285; G0378; J1650; J7040

== ENCOUNTER 2018-08-15 09:36 | Day surgery (SDC) | payer MEDICARE ==
[2018-08-04 09:00] VITALS: BMI 25.8
[2018-08-15] MEDS ORDERED: Gentamicin 80 mg in 0.9% NS 80 MG/100 ML BAG IVPB ONE ×2 (13:57→14:00)
[2018-08-15] MEDS ORDERED: Ciprofloxacin 400mg/200ml D5W 400 MG/200 ML BAG IVPB ONE (13:57)
[2018-08-15] MEDS ORDERED: Lidocaine 2% Jelly (Uro-Jet) ONE (13:58)
[2018-08-15] MEDS ORDERED: Propofol 10 mg/ml Inj (20 ML) ONE (14:34)
[2018-08-15] MEDS ORDERED: HYDROmorphone 0.5 mg/0.5 ml ISec IVP PRN (15:30)
--- NOTE | 2018-08-15 15:30 | PCM.SURG1 ---
Surgeon's Initial Post Op Note - Surgeon's Notes Surgeon: Zaid Building Economist: ROGER Type of Anesthesia: General LMA Anesthesia Administered By: Staff Pre-Operative Diagnosis: BPH/VU Operative Findings: BPH/VU Post-Operative Diagnosis: SAME Operation Performed: TULAP Specimen/Specimens Removed: NA Estimated Blood Loss: EBL {In ML}: 0 Blood Products Given: N/A Drains Used: No Drains Post-Op Condition: Good Date of Surgery/Procedure: 08/15/18 Time of Surgery/Procedure: 15:30
[2018-08-15 17:03] VITALS: RESP 16
[2018-08-15 17:42] VITALS: BP 107/66; PULSE 72; TEMP 97.8; O2SAT 99
--- NOTE | 2018-08-16 02:28 | OP ---
PROCEDURE DATE: 08/15/2018 PREOPERATIVE DIAGNOSIS: Benign prostatic hyperplasia with bladder outlet obstruction. POSTOPERATIVE DIAGNOSIS: Benign prostatic hyperplasia with bladder outlet obstruction. PROCEDURE: TULIP (green light laser vaporization of prostate). SURGEON: Clark Mar MD FINDINGS: Trilobar hypertrophy of the prostate with significant outlet obstruction. DESCRIPTION OF PROCEDURE: The patient was asked to sign a detailed informed consent after he received a full explanation of the risks and complications of this procedure and alternative ways of treating lower urinary tract symptoms secondary to BPH. The patient was then agreed to accept the risk and was brought into the room, and a time-out was taken according to the rules and regulation of [facility]. The patient was then draped and prepped in usual manner, and after receiving prophylactic antibiotics, was cystoscoped with #21 laser cystoscope. Previous cystoscopic findings were confirmed and the laser resectoscope was then inserted within the sheath. The laser fiber was used to began vaporization of the prostate at 11 o'clock, just distal to the bladder neck, and this was carried down to just proximal to the verumontanum. The base tissue, the roof tissue, and the left lateral lobe were resected in a similar fashion. Once the complete vaporization occurred, there was adequate voiding channel. The bladder was reinspected. There was no injury to the bladder. There was no injury to the external sphincter. There was meticulous hemostasis. The bladder was filled with saline and the instrument was removed; #18 Coude catheter was inserted. The irrigant fluid was drained, and it was inflated with the appropriate amount of saline. Clark Mar MD
== END 2018-08-15 17:44 | disposition home or self-care (01) ==
LOC: C.SDS 09:36
PROVIDERS: ATTEND Urology
DX: N40.1 Benign prostatic hyperplasia with lower urinary tract symptoms (principal); N32.0 Bladder-neck obstruction
CPT/HCPCS: 52648; 82948; A4358; J0744; J1580